=== PATIENT | female | born 1970 | race Caucasian/White ===

== ENCOUNTER 2018-08-11 08:00 | Outpatient (CLI) | payer MEDICAID ==
[2018-08-11 15:31] LABS: BASOPHILS # (AUTO) 0.1 10^3/uL (0.0-0.1); BASOPHILS % (AUTO) 0.8 %; EOSINOPHILS # (AUTO) 0.6 10^3/uL (0.0-0.7); EOSINOPHILS % (AUTO) 5.6 %; LYMPHOCYTES # (AUTO) 1.8 10^3/uL (1.5-3.5); LYMPHOCYTES % (AUTO) 16.7 %; MEAN CORPUSCULAR HEMOGLOBIN 29.8 pg (27.0-31.0); MEAN CORPUSCULAR HGB CONC 33.9 g/dL (32.0-36.0); MEAN CORPUSCULAR VOLUME 87.9 fL (81.0-99.0); MONOCYTES # (AUTO) 0.7 10^3/uL (0.0-1.0); MONOCYTES % (AUTO) 6.2 %; NEUTROPHILS # (AUTO) 7.6 10^3/uL (1.5-6.6); NEUTROPHILS % (AUTO) 70.7 %; PLT - PLATELET COUNT 314 10^3/uL (130-450); RED BLOOD COUNT 5.03 10^6/uL (4.20-5.40); RED CELL DISTRIBUTION WIDTH 13.8 % (12.0-15.0); WHITE BLOOD COUNT 10.8 x10^3/uL (4.8-10.8)
[2018-08-11 15:55] LABS: ALBUMIN 4.6 g/dL (3.2-5.5); ALBUMIN/GLOBULIN RATIO 1.2 (1.0-2.2); ALKALINE PHOSPHATASE 68 IU/L (42-121); ALT ALANINE AMINOTRANSFERASE 22 IU/L (10-60); AST ASPARTATE AMINOTRANSFERASE 20 IU/L (10-42); BILIRUBIN,TOTAL 0.4 mg/dL (0.2-1.0); BUN - BLOOD UREA NITROGEN 11 mg/dL (6-20); CALCIUM 9.6 mg/dL (8.5-10.3); CARBON DIOXIDE - CO2 22 mmol/L (21-32); CHLORIDE 106 mmol/L (101-111); CHOL/HDL RATIO 3.7 (<4.4); CHOLESTEROL 152 mg/dL; CREATININE 1.1 mg/dL (0.4-1.0); GFR - MDRD 53 (>89); GLUCOSE 100 mg/dL (70-100); HDL CHOLESTEROL 41 mg/dL; LDL CHOLESTEROL,CALCULATED 55 mg/dL; LDL/HDL RATIO 1.3 (<4.4); SODIUM 135 mmol/L (135-145); TOTAL PROTEIN 8.3 g/dL (6.7-8.2); VLDL CHOLESTEROL 56 mg/dL
[2018-08-11 16:08] LABS: HB2 TOTAL 16.9 g/dL; HEMOGLOBIN A1C 0.63 g/dL; HEMOGLOBIN A1C % 5.6 % (4.6-6.2)
[2018-08-11 16:09] LABS: LITHIUM 0.86 mmol/L
[2018-08-11 16:25] LABS: T4 (THYROXINE) 9.89 ug/dL (6.09-12.23)
[2018-08-11 16:28] LABS: THYROID STIMULATING HORMONE 4.82 uIU/mL (0.34-5.60)
[2018-08-11 16:30] LABS: FREE T4 (FREE THYROXINE) 0.67 ng/dL (0.58-1.64)
[2018-08-11 16:35] LABS: TOTAL T3 1.38 ng/mL (0.87-1.78)
== END 2018-08-11 08:01 | disposition home or self-care (01) ==
LOC: LAB 08:00
PROVIDERS: ATTEND Registered Nurse
DX: F31.30 Bipolar disorder, current episode depressed, mild or moderate severity, unspecified (principal); Z79.899 Other long term (current) drug therapy
CPT/HCPCS: 36415; 80053; 80061; 80178; 83036; 83721; 84436; 84439; 84443; 84480; 85025

== ENCOUNTER 2019-06-01 16:00 | Outpatient (CLI) | payer BC, MEDICAID ==
[2019-06-02 00:25] LABS: TRICHOMONAS VAGINALIS DNA NEGATIVE (NEGATIVE)
== END 2019-06-01 23:59 | disposition home or self-care (01) ==
LOC: LAB.R 16:00
PROVIDERS: ATTEND Obstetrics & Gynecology
DX: Z20.2 Contact with and (suspected) exposure to infections with a predominantly sexual mode of transmission (principal)
CPT/HCPCS: 87491; 87591; 87661

== ENCOUNTER 2019-06-01 16:21 | Outpatient (CLI) | payer BC, MEDICAID ==
[2019-06-02 11:37] LABS: HIV AG/AB 4TH GEN NON-REACTIVE (NON-REACTIVE)
[2019-06-02 12:41] LABS: HEPATITIS B SURFACE ANTIGEN NON-REACTIVE (NON-REACTIVE)
[2019-06-02 13:21] LABS: HEPATITIS C ANTIBODY NON-REACTIVE (NON-REACTIVE)
== END 2019-06-01 16:22 | disposition home or self-care (01) ==
LOC: LAB 16:21
PROVIDERS: ATTEND Obstetrics & Gynecology
DX: Z20.2 Contact with and (suspected) exposure to infections with a predominantly sexual mode of transmission (principal)
CPT/HCPCS: 81599; 86592; 86803; 87340; 87389; 87491; 87591; 87661

== ENCOUNTER 2020-07-21 04:16 | Outpatient (CLI) | payer MEDICAID | END 2020-07-21 04:17 | disposition critical access hospital (66) | LOC: EMS 04:16 | PROVIDERS: ATTEND Surgery | DX: T50.912A Poisoning by multiple unspecified drugs, medicaments and biological substances, intentional self-harm, initial encounter (principal) | CPT/HCPCS: A0425; A0427; A0999 ==

== ENCOUNTER 2020-07-21 04:33 | Observation (INO) | payer BC, MEDICAID ==
[2020-07-21] MEDS ORDERED: CHARCOAL ACTIVATED 25 GM/120 ML BOTTLE PO STA (04:40)
[2020-07-21] MEDS ORDERED: SODIUM CHLORIDE 0.9% 1,000 ML IV STA (04:40)
[2020-07-21 05:04] LABS: BASOPHILS # (AUTO) 0.1 10^3/uL (0.0-0.1); BASOPHILS % (AUTO) 0.7 %; EOSINOPHILS # (AUTO) 0.2 10^3/uL (0.0-0.7); EOSINOPHILS % (AUTO) 3.6 %; HGB - HEMOGLOBIN 15.5 g/dL (12.0-16.0); LYMPHOCYTES # (AUTO) 2.2 10^3/uL (1.5-3.5); LYMPHOCYTES % (AUTO) 32.8 %; MEAN CORPUSCULAR HEMOGLOBIN 29.9 pg (27.0-31.0); MEAN CORPUSCULAR HGB CONC 33.4 g/dL (32.0-36.0); MEAN CORPUSCULAR VOLUME 89.4 fL (81.0-99.0); MEAN PLATELET VOLUME 10.3 fL (7.9-10.8); MONOCYTES # (AUTO) 0.3 10^3/uL (0.0-1.0); MONOCYTES % (AUTO) 4.8 %; NEUTROPHILS # (AUTO) 3.9 10^3/uL (1.5-6.6); NEUTROPHILS % (AUTO) 57.5 %; PLT - PLATELET COUNT 257 10^3/uL (130-450); RED BLOOD COUNT 5.19 10^6/uL (4.20-5.40); RED CELL DISTRIBUTION WIDTH 13.1 % (12.0-15.0); WHITE BLOOD COUNT 6.7 x10^3/uL (4.8-10.8)
[2020-07-21 05:19] LABS: ACETAMINOPHEN < 10 ug/mL (10-30); ALBUMIN 4.3 g/dL (3.2-5.5); ALBUMIN/GLOBULIN RATIO 1.2 (1.0-2.2); ALKALINE PHOSPHATASE 77 IU/L (42-121); ALT ALANINE AMINOTRANSFERASE 17 IU/L (10-60); AST ASPARTATE AMINOTRANSFERASE 17 IU/L (10-42); BILIRUBIN,TOTAL 0.4 mg/dL (0.2-1.0); BUN - BLOOD UREA NITROGEN 9 mg/dL (6-20); CALCIUM 9.2 mg/dL (8.5-10.3); CARBON DIOXIDE - CO2 18 mmol/L (21-32); CHLORIDE 111 mmol/L (101-111); CREATININE 1.1 mg/dL (0.4-1.0); GLUCOSE 119 mg/dL (70-100); LIPASE 29 U/L (22-51); SALICYLATE < 6.0 mg/dL; SODIUM 140 mmol/L (135-145)
[2020-07-21] MEDS ORDERED: SODIUM BICARBONATE 100 MEQ in DEXTROSE 5% 1,000 ML IV STA (05:22)
--- NOTE | 2020-07-21 05:22 | ED Physician Documentation ---
PD HPI OVERDOSE - Stated complaint Stated Complaint: OD - Chief complaint Chief Complaint: MHE - History obtained from History obtained from: Patient - History of Present Illness Timing - onset: How many hours ago (possibly 4 hours STRANNER, as patient says she took meds about midnight. Daughter discovered her with pills on floor and sedated just STRANNER.) Subtance(s) ingested: Multiple (Patient states she took amitriptylline and doxepin Rx pills with intent to overdose/suicide along with some alcohol. Unknown number of pills. EMS states there were 2 of her pills bottles open with a few pills spilled. They scooped them back into the bottles and put them into bag with her other pills), EtOH (some alcohole). No: ASA, Tylenol, Illicit drug Associated symptoms: Altered mental status (daughter says her mom was hard to rouse, and seemed confused when she did.) Contributing factors: Depresssed, Suicidal Similar symptoms before: Has not had sx before Recently seen: Not recently seen Review of Systems Constitutional: denies: Fever Eyes: reports: Decreased vision (mild blurred) Throat: denies: Sore throat Cardiac: denies: Chest pain / pressure Respiratory: denies: Cough GI: denies: Abdominal Pain, Vomiting Skin: denies: Abrasion (s), Laceration (s) Neurologic: denies: Focal weakness, Numbness, Syncope, Seizure, Headache Endocrine: denies: Weight loss Immunocompromised: denies: Immunocompromised PD PAST MEDICAL HISTORY - Past Medical History Past Medical History: Yes Cardiovascular: Hypertension Respiratory: None Endocrine/Autoimmune: None GI: None : None HEENT: None Psych: Depression, Anxiety, ADD/ADHD Musculoskeletal: None Derm: None - Past Surgical History Past Surgical History: Yes General: Cholecystectomy - Present Medications Home Medications: Ambulatory Orders Medication Instructions Recorded Confirmed ARIPiprazole [Abilify] 5 mg PO DAILY 07/21/20 07/21/20 Amitriptyline [Elavil] 25 mg PO QPM 07/21/20 07/21/20 Buspirone HCl 10 mg PO DAILY 07/21/20 07/21/20 Citalopram Hydrobromide [Celexa] 20 mg PO DAILY 07/21/20 07/21/20 Cyclobenzaprine HCl 5 mg PO DAILY 07/21/20 07/21/20 Doxepin [SINEquan] 10 mg PO DAILY 07/21/20 07/21/20 Fluoxetine HCl [Prozac] 40 mg PO BID 07/21/20 07/21/20 LORazepam [Ativan] 0.5 mg PO DAILY PRN 07/21/20 07/21/20 [place] Carbonate 150 mg PO TID 07/21/20 07/21/20 Lurasidone HCl [Latuda] 40 mg PO DAILY 07/21/20 07/21/20 Metoprolol Tartrate 50 mg PO DAILY 07/21/20 07/21/20 Prazosin [Minipress] 1 mg PO QPM 07/21/20 07/21/20 Risperidone [Risperdal] 2 mg PO DAILY 07/21/20 07/21/20 Venlafaxine ER [Effexor ER] 37.5 mg PO DAILY 07/21/20 07/21/20 amLODIPine [Norvasc] 5 mg PO DAILY 07/21/20 07/21/20 hydrOXYzine PAMOATE [Vistaril] 25 mg PO QID 07/21/20 07/21/20 - Allergies Allergies/Adverse Reactions: Allergies Allergy/AdvReac Type Severity Reaction Status Date / Time No Known Drug Allergies Allergy Verified 07/21/20 04:50 - Social History Does the pt smoke?: No Smoking Status: Never smoker Does the pt have substance abuse?: No - Immunizations Immunizations are current?: Yes - POLST Patient has POLST: No PD ED PE NORMAL - Vitals Vital signs reviewed: Yes - General General: Alert and oriented X 3, No acute distress, Well developed/nourished - HEENT HEENT: EOMI (no nystagmus), Moist mucous membranes, Pharynx benign, Other (small subconjunctival hemorrhage noted medial right eye about 4-6 o'clock position.) - Neck Neck: Supple, no meningeal sign, No adenopathy - Cardiac Cardiac: No murmur. No: RRR (tachycardic, without ectopy. QRS appears normal. ) - Respiratory Respiratory: Clear bilaterally - Abdomen Abdomen: Soft, Non tender - Derm Derm: Normal color, Warm and dry - Neuro Neuro: Alert and oriented X 3, No motor deficit, Normal speech Eye Opening: Spontaneous Motor: Obeys Commands Verbal: Oriented GCS Score: 15 - Psych Psych: No: Normal mood (sad) Results - Vitals Vitals: Vital Signs - 24 hr 07/21/20 07/21/20 07/21/20 04:35 05:06 05:52 Temperature 37.2 C Heart Rate 111 H 110 H 101 H Respiratory 21 21 19 Rate Blood Pressure 133/98 H 142/110 H 106/71 O2 Saturation 97 99 98 Oxygen O2 Source Room air - EKG (time done) 04:51 Rate: Rate (enter#) (109) [place]: Normal Intervals: Normal IL. No: Wide QRS (it is 77) QRS: Normal Ischemia: Normal ST segments, Non specific changes (flattening laterally). No: ST elevation c/w ischemia, ST depression - Labs Labs: Laboratory Tests 07/21/20 07/21/20 07/21/20 04:41 04:41 04:41 WBC 6.7 RBC 5.19 Hgb 15.5 Hct 46.4 MCV 89.4 MCH 29.9 MCHC 33.4 RDW 13.1 Plt Count 257 MPV 10.3 Neut # (Auto) 3.9 Lymph # (Auto) 2.2 [place] # (Auto) 0.3 Eos # (Auto) 0.2 Baso # (Auto) 0.1 Absolute Nucleated RBC 0.00 Nucleated RBC % 0.0 Sodium 140 Potassium 3.2 L Chloride 111 Carbon Dioxide 18 L Anion Gap 11.0 BUN 9 Creatinine 1.1 H Estimated GFR (MDRD) 53 L Glucose 119 H Calcium 9.2 Total Bilirubin 0.4 AST 17 ALT 17 Alkaline Phosphatase 77 Total Protein 8.0 Albumin 4.3 Globulin 3.7 Albumin/Globulin Ratio 1.2 Lipase 29 TSH 3.23 Salicylates < 6.0 Acetaminophen < 10 L Ethyl Alcohol 13.0 PD MEDICAL DECISION MAKING - ED course Complexity details: considered differential (Depression and acute suicidality overdosing on try cyclic medication. She is tachycardic but her QRS appears normal. No report of seizures. She has slightly blurred vision and is minimally sleepy. Reportedly took the medication at midnight, but ? reliability.), d/w patient, d/w family ED course: The patient has some dry mouth and is sleepy but still conversant. She denies any blurred vision. She is persistently tachycardic and has bicarb of 18 some mild acidosis. Her initial blood pressure was 130s systolic and last check was 106 systolic. A repeat EKG showed the QRS to be 80 which is fairly similar to 77 on the first 1. Up-to-date reference gave at least a 6-hour timeframe to watch for any symptoms and more prolonged observation if symptomatic. However the patient already presents symptomatic with tachycardia and mild acidosis, falling BP (though not hypotensive), dry mouth, somnolence. Has good ventilation/airway. Has a normal QRS. Up to date suggested monitored care setting. Doxepin half life is reasonably long, so patient will need reasonable length time of cardiac monitoring until symptoms improve. Seizure precautions, manager cardiac cath, frequent BP checks, accuchecks. Departure - Departure Disposition: ED Place in Observation Clinical Impression: Intentional overdose of drug in tablet form, Suicide attempt, Tachycardia Tricyclic overdose Qualifiers: Encounter type: initial encounter Injury intent: intentional self-harm Qualified Code(s): T43.012A - Poisoning by tricyclic antidepressants, intentional self-harm, initial encounter Condition: Stable Record reviewed to determine appropriate education?: Yes
[2020-07-21] MEDS ORDERED: POTASSIUM CHLOR 10 MEQ/100 ML 10 MEQ/100 ML BAG IV ONE (05:23)
[2020-07-21] MEDS ORDERED: SODIUM BICARBONATE 8.4% 50 MEQ/50 ML VIAL ONE (05:32)
[2020-07-21] MEDS ORDERED: DEXTROSE 5% 1,000 ML IV ONE (05:35)
[2020-07-21 06:16] LABS: LITHIUM < 0.05 mmol/L
[2020-07-21 06:19] LABS: MUDS CUTOFF CONCENTRATIONS CUTOFF CONC BELOW:
[2020-07-21 06:20] LABS: BILIRUBIN,URINE NEGATIVE (NEGATIVE); GLUCOSE, URINE (UA) NEGATIVE (NEGATIVE); KETONES,URINE (UA) NEGATIVE (NEGATIVE); LEUKOCYTE ESTERASE, URINE NEGATIVE (NEGATIVE); NITRITE,URINE NEGATIVE (NEGATIVE); OCCULT BLOOD,URINE NEGATIVE (NEGATIVE); PROTEIN,URINE NEGATIVE (NEGATIVE); UROBILINOGEN,URINE 0.2 (NORMAL) E.U./dL (NORMAL)
[2020-07-21 06:22] LABS: CLARITY,URINE CLEAR (CLEAR); HCG UR QUAL NEGATIVE
[2020-07-21] MEDS ORDERED: ACETAMINOPHEN 325 MG TABLET PO PRN (06:23)
[2020-07-21] MEDS ORDERED: ONDANSETRON ODT 4 MG TABLET TL PRN (06:23)
[2020-07-21] MEDS ORDERED: SODIUM CHLORIDE FLUSH 0.9% 10 ML SYRINGE IVP PRN (06:23)
[2020-07-21] MEDS ORDERED: LACTATED RINGERS 1,000 ML IV ONE (06:26)
[2020-07-21] MEDS ORDERED: POTASSIUM CHLORIDE 20 MEQ TABLET PO STA (06:26)
[2020-07-21 06:31] LABS: AMPHETAMINE SCREEN,URINE NEGATIVE (NEGATIVE); BENZODIAZEPINES SCREEN, URINE NEGATIVE (NEGATIVE); COCAINE SCREEN URINE NEGATIVE (NEGATIVE); METHADONE SCREEN, URINE NEGATIVE (NEGATIVE); METHAMPHETAMINES SCREEN, URINE NEGATIVE (NEGATIVE); OPIATE SCREEN, URINE NEGATIVE (NEGATIVE); OXYCODONE SCREEN, URINE NEGATIVE (NEGATIVE); PROPOXYPHENE SCREEN, URINE NEGATIVE (NEGATIVE); TRICYCLIC ANTIDEPRESSANT,URINE POSITIVE (NEGATIVE)
[2020-07-21] MEDS: ENOXAPARIN 40 MG/0.4 ML SYRINGE SUBQ SCH (09:17)
--- NOTE | 2020-07-21 09:50 | HISTORY & PHYSICAL EXAMINATION ---
Chief Complaint - Chief Complaint Chief Complaint: Found down by daughter <Jessica Olea - Last Filed: 07/21/20 13:57> History of Present Illness - Admitted From Admitted From:: Home via EMS - History Obtained From Records Reviewed: [facility] History obtained from: Patient Exam Limitations: none <Jessica Olea - Last Filed: 07/21/20 13:57> - History of Present Illness HPI Comment/Other: The patient is a 50yo female, admitted to observation for overdose on tricyclics. The patient was found down in her bathroom by her live-in daughter around 1am this morning. The daughter states the patient was groggy and slurring her speech prompting her to call EMS. She denies the presence of any blood, vomit or stool on the floor or on the patient. The patient reports to have drank 1 and a half cans of [place] (alcohol) and then took different sleeping pills, estimating a total of 25-30 tabs. She reports the incident was sparked by feelings from a recent 5.5 yr break up with her boyfriend and lack of people reaching out on her birthday, which was yesterday. She is estranged from her family; parents, sister, ex-, and oldest son do not speak to her. Her daughter is her only family and younger son speaks to her only occasionally. The patient has a history of depression, anxiety, borderline personality disorder and possible bipolar (she is unsure of this diagnosis but recalls a hx of taking lithium in the past). She had been being seen at [facility] but due to insurance complications stopped going, last appointment was in March. (LeftyJessica) History - Past Medical History Cardiovascular: reports: Hypertension Respiratory: reports: None Neuro: reports: None Endocrine/Autoimmune: reports: None GI: reports: None SERVICE ORDER DISPATCHER: reports: None : reports: None HEENT: reports: None Psych: reports: Depression, Anxiety, Bipolar disorder (Pt reports having been diagnosed with this previously and placed on lithium but feels as though this may be an inaccurate diagnosis. ), ADD/ADHD, Other (Borderline personality disorder) Musculoskeletal: reports: None Derm: reports: None MRSA Hx?: No Other Past Medical History: Restless Leg Syndrome - Past Surgical History General: reports: Cholecystectomy (2013) - Family & Social History Family History Comment/Other: Pt is adopted and estranged from her adoptive family. Her mother and 1/2 sister live in [place] and have a hx of ETOH abuse. father whereabouts unknown. Living arrangement: At home Living Situation: With family (Daughter, Kirby, lives with her in the home) Social History Notes: Pt reports being from for over 6 years now, has two sons and one daughter. Daughter, 27 lives with her. Oldest son lives with father in [place] and does not speak to her, younger son lives in [place], [place] and speaks to her occasionally. Recently broke up with her boyfriend of 5.5 years and has been in recent contact with him, however contact has been argumentative. Denies tobacco use, reports occasional alcohol consumption (non- regularly), reports daily marijuana consumption reporting that she smokes a couple of times daily. - Substance History Use: Uses substance without health or social issues: Cannabis Use Issues: Mood Disorder Abuse: Recurrent use of substance despite neg consequences: NONE Dependence: Experiences withdrawal or developed tolerances: Cannabis (tolerance) - POLST Patient has POLST: No POLST Status: Full Code <Jessica Olea - Last Filed: 07/21/20 13:57> Meds/Allgy <Jessica Olea - Last Filed: 07/21/20 13:57> <Shasta Garcia - Last Filed: 07/21/20 14:46> - Home Medications Home Medications: Ambulatory Orders Medication Instructions Recorded Confirmed ARIPiprazole [Abilify] 5 mg PO DAILY 07/21/20 07/21/20 Amitriptyline [Elavil] 25 mg PO QPM 07/21/20 07/21/20 Buspirone HCl 10 mg PO DAILY 07/21/20 07/21/20 Citalopram Hydrobromide [Celexa] 20 mg PO DAILY 07/21/20 07/21/20 Cyclobenzaprine HCl 5 mg PO DAILY 07/21/20 07/21/20 Doxepin [SINEquan] 10 mg PO QPM 07/21/20 07/21/20 Fluoxetine HCl [Prozac] 40 mg PO BID 07/21/20 07/21/20 LORazepam [Ativan] 0.5 mg PO DAILY PRN 07/21/20 07/21/20 [place] Carbonate 150 mg PO TID 07/21/20 07/21/20 Lurasidone HCl [Latuda] 40 mg PO DAILY 07/21/20 07/21/20 Metoprolol Succinate [Toprol Xl] 50 mg PO DAILY 07/21/20 07/21/20 Prazosin [Minipress] 1 mg PO QPM 07/21/20 07/21/20 Risperidone [Risperdal] 2 mg PO DAILY 07/21/20 07/21/20 Venlafaxine ER [Effexor ER] 37.5 mg PO DAILY 07/21/20 07/21/20 hydrOXYzine PAMOATE [Vistaril] 25 mg PO QID 07/21/20 07/21/20 - Allergies Allergies/Adverse Reactions: Allergies Allergy/AdvReac Type Severity Reaction Status Date / Time No Known Drug Allergies Allergy Verified 07/21/20 04:50 Review of Systems - Constitutional Constitutional: reports: Fatigue - Eyes Eyes: reports: Irritation (reports to occasionally have broken blood vessel in right eye) - Psychiatric Psychiatric: reports: Depression (feels alone, isolated, as if no one cares about her.), Other (Reports that she feels like sleeping all day, lack of energy) - All Other Systems All Other Systems: reports: Reviewed and negative <Jessica Olea - Last Filed: 07/21/20 13:57> <Jessica Olea - Last Filed: 07/21/20 13:57> Prior Level of Functionality: Prior to this hospitalization patient was able to perform all ADLs independently, does not require durable medical equipment to ambulate. (Jessica Olea) Exam - Vital Signs Reviewed Vital Signs: Yes - Physical Exam General Appearance: positive: No acute distress, Alert Eyes Bilateral: positive: Other (Broken blood vessels in right eye, otherwise PERRLA, pupils 1cm in size) ENT: positive: ENT inspection nml Neck: positive: Nml inspection Respiratory: positive: No respiratory distress, Breath sounds nml Cardiovascular: positive: Regular rate & rhythm, No murmur, No gallop Peripheral Pulses: positive: 2+ Abdomen: positive: Non-tender, Nml bowel sounds Skin: positive: Color nml, No rash, Warm, Dry Extremities: positive: Non-tender, Full ROM Neurologic/Psychiatric: positive: Oriented x3, Motor nml <Jessica Olea - Last Filed: 07/21/20 13:57> - Vital Signs Vital Signs: Vital Signs x48h Temp Pulse Pulse Resp BP BP BP 07/21/20 12:00 36.9 C 86 20 103/72 07/21/20 08:00 36.9 C 96 18 117/89 H 07/21/20 07:15 36.4 C L 94 19 136/90 H 07/21/20 06:54 94 19 136/90 H 07/21/20 06:30 36.2 C L 101 H 19 102/56 L 07/21/20 06:00 98 20 106/71 Pulse Ox 07/21/20 12:00 95 07/21/20 08:00 97 07/21/20 07:15 98 07/21/20 06:54 97 07/21/20 06:30 98 07/21/20 06:00 97 Conclusion/Plan - Problem List (1) Tricyclic overdose Conclusion/Plan: Pt reports to have taken 25-30 tabs of different sleeping pills intentionally to end her life. Toxicology screen in the ED found positive tricyclics. During assessment patient was slightly groggy but able to arouse, answer questions appropriately, and was calm and participative. EKG from ED found NSR, QRS 0.09, QTc 0.39, HR in 90's. Repeat EKG while in obs found to be normal, no significant change from previous. Potassium was found to be low at 3.2, replaced in the ED, will recheck this value while in observation and replace further if necessary. Plan: -Monitor vitals q4hr -Repeat potassium level 6 hours after replacement -IV LR @100ml/hr Qualifiers: Encounter type: initial encounter Injury intent: intentional self-harm Qualified Code(s): T43.012A - Poisoning by tricyclic antidepressants, intentional self-harm, initial encounter (2) Suicide attempt Conclusion/Plan: Pt confirms her intentions with taking sleeping pills was to end her life. She will need to be monitored to ensure she dose not cause any further self-harm. DMHP will determine next steps in her care. Plan: -1:1 observation (3) Depression Conclusion/Plan: Pt has been previously diagnosed with depression as well as other behavioral issues. Reports difficulty dealing with recent break up in conjunction with feeling isolated on her birthday which was yesterday prompted severe depressive episode where she wanted to end her life. Psychiatry will determine the next steps in her mental health care. Qualifiers: Depression Type: unspecified Qualified Code(s): F32.9 - Major depressive disorder, single episode, unspecified (4) Hypertension Conclusion/Plan: Pt is previously diagnosed with hypertension. She had been prescribed BP management medication however has not been taking it since her insurance change, approximately 4 months ago. During admission her BP has been within normal range. Will continue to monitor her BP and provide PRN medication. Plan: -Hydralizine 10mg IVP PRN q4hr for SBP >160 -Monitor BP q4hr Qualifiers: Hypertension type: essential hypertension Qualified Code(s): I10 - Essential (primary) hypertension - Lab Results Lab results reviewed: Yes Fish Bones: 07/21/20 04:41 07/21/20 04:41 - Diagnostic Imaging Results Diagnostic Imaging Results: positive: See rad report - EKG Results EKG Interpreted Independently: Yes EKG Comparison: Unchanged from prior EKG <Jessica Olea - Last Filed: 07/21/20 13:57> - Lab Results Fish Bones: 07/21/20 04:41 07/21/20 12:22 <Shasta Garcia - Last Filed: 07/21/20 14:46> - EKG Results EKG Findings: Normal Sinus: HR 96 QRS0.09 QTc 0.46 (Jessica Olea) Core Measures - Anticipated LOS I expect patient to be DC'd or transferred within 96 hours.: Yes - DVT/VTE - Prophylaxis VTE/DVT Device ordered at admit?: No Not Ordered - Low Risk: Low Risk VTE/DVT Prophylaxis med ordered at admit?: Yes - AMI - Statin at Admit Aspirin Prescribed on Admit: No <Jessica Olea - Last Filed: 07/21/20 13:57>
[2020-07-21] MEDS: SODIUM CHLORIDE FLUSH 0.9% 10 ML SYRINGE IVP SCH ×2 (10:28→15:57)
[2020-07-21] MEDS: LACTATED RINGERS 1,000 ML IV SCH ×2 (10:28→19:59)
[2020-07-21 12:49] LABS: CALCIUM 8.6 mg/dL (8.5-10.3); CREATININE 0.9 mg/dL (0.4-1.0); PHOSPHORUS 3.1 mg/dL (2.5-4.6)
--- NOTE | 2020-07-21 13:07 | PHARMACY PROGRESS NOTE ---
- Best Possible Medication History Admit Date and Time: 07/21/20622 Processed by: Pharmacy Medication History completed: Yes Patient Interview: Pt unable to participate Secondary Source(s): Prescription bottles, Pharmacy records, Insurance records As the person ultimately responsible for medication therapy, providers are able to order a medication from an existing home medication list in [facility] via the "Reconcile Routine" prior to Confirmation of that medication by residential support worker. Such practice is discouraged except when the physician, in their clinical judgment, deems that a medical need exists for a medication without regard to previous use.
[2020-07-22] MEDS: SODIUM CHLORIDE FLUSH 0.9% 10 ML SYRINGE IVP SCH ×3 (01:51→16:29)
[2020-07-22 05:22] LABS: BASOPHILS # (AUTO) 0.1 10^3/uL (0.0-0.1); BASOPHILS % (AUTO) 0.7 %; EOSINOPHILS # (AUTO) 0.2 10^3/uL (0.0-0.7); EOSINOPHILS % (AUTO) 3.4 %; HGB - HEMOGLOBIN 14.7 g/dL (12.0-16.0); LYMPHOCYTES # (AUTO) 2.1 10^3/uL (1.5-3.5); LYMPHOCYTES % (AUTO) 31.5 %; MEAN CORPUSCULAR HEMOGLOBIN 29.9 pg (27.0-31.0); MEAN CORPUSCULAR HGB CONC 33.1 g/dL (32.0-36.0); MEAN CORPUSCULAR VOLUME 90.2 fL (81.0-99.0); MEAN PLATELET VOLUME 10.2 fL (7.9-10.8); MONOCYTES # (AUTO) 0.4 10^3/uL (0.0-1.0); MONOCYTES % (AUTO) 5.3 %; NEUTROPHILS % (AUTO) 58.7 %; PLT - PLATELET COUNT 235 10^3/uL (130-450); RED BLOOD COUNT 4.92 10^6/uL (4.20-5.40); RED CELL DISTRIBUTION WIDTH 13.2 % (12.0-15.0); WHITE BLOOD COUNT 6.8 x10^3/uL (4.8-10.8)
[2020-07-22] MEDS: LACTATED RINGERS 1,000 ML IV SCH ×2 (06:01→15:23)
[2020-07-22] MEDS: ENOXAPARIN 40 MG/0.4 ML SYRINGE SUBQ SCH (08:19)
--- NOTE | 2020-07-22 15:29 | Discharge Plan ---
Discharge Plan Problem Reviewed?: Yes Disposition: 65 Psych Hosp/Unit DC/Xfer Condition: Stable Diet: Regular Activity Restrictions: Activity as Tolerated (as per [facility] protocol (no medical limitations)) Health Concerns: Tricyclic antidepressent overdose Patient is a 50 yo female with history of depression , bipolar disorder who presented when found by daughter 07/21 early am groggy w/ slurred speech with pill bottles empty beside her. (per later report estimated 25-30 tabs) along with a can of [place] alcohol. Tox screen on presentation + for tricyclics and cannibus, [place] level < 0.05 (bottles at home included lithium), Tylenol neg, ETOH 13.0, salicylates < 6.0 . In ED she was arousable, hemodynamically stable other than mild tachycardia ~ 100. EKG was without QT prolongation or other acute abnormality, and repeat EKG without change. Labs with mild acidosis / bicarb 18. Patient did have suicidal ideation at the time of ingestion due to a break up and feelings of isolation. She was monitored in inpatient setting with frequent VS, 1:1 observation, and IVF. She remained medically stable after time of admission to inpatient unit, hemodynamically stable, with normalized labs on 07/21 afternoon. Evaluated by mental health services on 07/22 and accepted [facility] (of note; at home she had many leftover bottles of prior prescriptions including but not limited to; doxepin, abilify, prisperial, buspirone, lorazepam, fluoxetine) Ensure before return home these are no longer in the home Hypertension Patient is on amlodipine at home can continue amlodipine 5 mg daily , Hold for SBP under 110 Depression; patient on Venlafaxine daily 37.5 at home This is continued on her No Smoking: If you smoke, Please STOP! Call for help.
[2020-07-22 15:47] VITALS: BP 151/98
--- NOTE | 2020-07-23 07:08 | DISCHARGE SUMMARY ---
"Discharge Summary Admit Date: 07/21/20 Discharge Date: 07/22/20 Discharging Provider: DIONY Quiñones Condition at Discharge: Stable Discharge Disposition: [facility] Psych Hosp/Unit DC/Xfer - DIAGNOSES Admission Diagnoses: Tricyclic over dose Suicide attempt Hypertension Depression Discharge Diagnoses with Status of Each Condition: 1 Tricyclic antidepressent overdose EKG without QRS widening or other significant abnormality , Vital signs (mild tachycardia) and chemistries (mild acidosis bicarb 18) RESOLVED 2 Suicide attempt; Patient denied continued thoughts of self harm Accepted for Transfer to inpatient mental health at [facility] 3 Hypertension stable Patient is on amlodipine at home can continue amlodipine 5 mg daily , Hold for SBP under 110 4 Depression; mood stable - HPI History of Present Illness: Patient is a 50 yo female with history of depression , anxiety, borderline personality disorder and possibly bipolar (she is unsure of dx, has taken lithium in the past) who presented when found by her live-in daughter 07/21 ~ 1am am groggy w/ slurred speech with pill bottles empty beside her. no emesis, blood or stool around patient. Daughter later report estimated 25-30 tabs of sinequan and amitryptilline and possibly other sleeping pills taken along with a can of [place] alcohol. Tox screen on presentation + for tricyclics and cannibus, [place] level < 0.05 (bottles at home included lithium), Tylenol neg, ETOH 13.0, salicylates < 6.0 In ED she was arousable, hemodynamically stable other than mild tachycardia ~ 110, initial BP 122/98, 142/110. Normal oxygenation and RR . EKG was without QT prolongation or other acute abnormality, and repeat EKG without change. Labs with mild acidosis / bicarb 18. Repeat bicarb 23 . santos virus PCR negatiave. Patient acknowleged suicidal ideation at the time of ingestion due to a romantic break up and feelings of isolation and lack of people reaching out on her birthday, which was the prior day. She is estranged from her family; pa rents, sister, ex-, and oldest son do not speak to her. Her daughter is her only family and younger son speaks to her only occasionally.. She had been being seen at [facility] but due to insurance complications stopped going, last appointment was in March - CONSULTS | PROCEDURES Consultations: [facility] mental health evaluation Procedures: none - HOSPITAL COURSE Hospital Course: Tricyclic antidepressent overdose Patient was monitored in inpatient setting with frequent VS, 1:1 observation, and IVF. She remained medically stable after time of admission to inpatient unit, hemodynamically stable, with normalized labs on 07/21 afternoon. Evaluated by mental health services on 07/22 and accepted for transfer to inpatient management at [facility] (of note; at home she had many leftover bottles of prior prescriptions including but not limited to; doxepin, abilify, prisperial, buspirone, lorazepam, fluoxetine) Ensure before return home these are no longer in the home Hypertension Patient is on amlodipine at home but had ot taken ~ 4 mos since insurance change. can continue amlodipine 5 mg daily , Hold for SBP under 110 Depression; patient on Venlafaxine daily 37.5 at home This is continued on her discharge med reconciliation but will defer to mental health specialists at [place] to modify if needed over 30 minutes spent on discharge discussing plan with patient, sandermnt - ALLERGIES Allergies/Adverse Reactions: Allergies Allergy/AdvReac Type Severity Reaction Status Date / Time No Known Drug Allergies Allergy Verified 07/21/20 04:50 - MEDICATIONS Home Medications: Ambulatory Orders Medication Instructions Recorded Confirmed Venlafaxine ER [Effexor ER] 37.5 mg PO DAILY 07/21/20 07/21/20 amLODIPine [Norvasc] 5 mg PO DAILY 07/22/20 07/22/20 - PHYSICAL EXAM AT DISCHARGE General Appearance: positive: No acute distress, Alert. negative: Anxious (cooperative, was reasonably asking for her phone as felt need to notify her workplace) Eyes Bilateral: positive: Normal inspection, PERRL, EOMI, Other (no nystagmus) Respiratory: positive: Chest non-tender, No respiratory distress Cardiovascular: positive: Regular rate & rhythm, No murmur. negative: Tachycardia Abdomen: positive: Non-tender, Nml bowel sounds, No distention Skin: positive: Warm, Other (no erythema). negative: Diaphoresis Extremities: negative: Pedal edema Neurologic/Psychiatric: positive: Oriented x3, Motor nml, Mood/affect nml, Other (denies intent of self harm currently) - LABS Result Diagrams: 07/22/20 04:55 07/21/20 12:22 - DIAGNOSTIC IMAGING Diagnostic Imaging Results Comments: EKG, NST Rate 109, normal SD, nonwidended QRS 77 ms, no ST elevation, no ST depression,nonspecific flattening laterally, repeat EKG unchanged - TIME SPENT Time Spent in Discharge (Minutes): 40"
== END 2020-07-22 17:05 ==
LOC: ED 04:33 → OBS 06:23 → UNDOADMIN 06:23 → MS2 06:23 → OBS 06:23 → UNDODISIN 07-22 17:05
PROVIDERS: ADMIT Internal Medicine; ATTEND Nurse Practitioner
DX: T43.012A Poisoning by tricyclic antidepressants, intentional self-harm, initial encounter (principal); R00.0 Tachycardia, unspecified; Y92.012 Bathroom of single-family (private) house as the place of occurrence of the external cause; I10 Essential (primary) hypertension; F31.9 Bipolar disorder, unspecified; F41.9 Anxiety disorder, unspecified; F60.3 Borderline personality disorder; F90.1 Attention-deficit hyperactivity disorder, predominantly hyperactive type; F12.99 Cannabis use, unspecified with unspecified cannabis-induced disorder
CPT/HCPCS: 36415; 80048; 80053; 80178; 80306; 80307; 80320; 80329; 81003; 81025; 83690; 83735; 84100; 84443; 85025; 87635; 93005; 96361; 96365; 96366; 96368; 96372; 99285; A9270; G0378; J1650; J7120; 81001; 84132; 87086

== ENCOUNTER 2022-04-20 08:00 | Outpatient (CLI) | payer OTHER, MEDICAID ==
[2022-04-20 21:01] LABS: CHLAMYDIA TRACHOMATIS DNA NEGATIVE (NEGATIVE); NEISSERIA GONORRHOEAE DNA NEGATIVE (NEGATIVE)
[2022-04-20 22:33] LABS: BACTERIAL VAGINOSIS DNA POSITIVE (NEGATIVE); CANDIDA GLABRATA DNA NEGATIVE (NEGATIVE); CANDIDA GROUP DNA NEGATIVE (NEGATIVE); CANDIDA KRUSEI DNA NEGATIVE (NEGATIVE); TRICHOMONAS VAGINALIS DNA NEGATIVE (NEGATIVE)
[2022-04-21 05:12] LABS: RPR Non Reactive (Non Reactive)
[2022-04-21 06:11] LABS: HCV AB <0.1 s/co ratio (0.0-0.9)
[2022-04-21 07:11] LABS: HSV 1 IGG TYPE SPEC <0.91 index (0.00-0.90)
[2022-04-21 08:18] LABS: HIV SCREEN 4TH GENERATION Non Reactive (Non Reactive)
[2022-04-22 21:08] LABS: HSV IGM I/II COMBINATION <0.91 Ratio (0.00-0.90)
== END 2022-04-20 23:59 | disposition home or self-care (01) ==
LOC: LAB.N 08:00
PROVIDERS: ATTEND Nurse Practitioner
DX: Z11.3 Encounter for screening for infections with a predominantly sexual mode of transmission (principal)
CPT/HCPCS: 36415; 81514; 86592; 86695; 86696; 86803; 87389; 87491; 87536; 87591; 87661

== ENCOUNTER 2022-05-19 13:33 | Outpatient (CLI) | payer OTHER, MEDICAID ==
--- NOTE | 2022-05-25 09:17 | Mammography Report ---
BILATERAL DIGITAL SCREENING MAMMOGRAM 3D/2D: 05/19/2022 CLINICAL: Baseline exam Routine screening. No prior exams were available for comparison. The tissue of both breasts is heterogeneously dense. T his may lower the sensitivity of mammography. There is an oval mass with an obscured and circumscribed margin in the right breast at 10 o'clock ant erior depth. There is an irregular focal asymmetry in the left breast at 3 o'clock posterior depth. There also is an asymmetry with an obscured margin in the left breast posterior depth inferior region seen on the mediolateral oblique view only. No other significant masses or calcifications are seen in either breast. IMPRESSION: INCOMPLETE: NEEDS ADDITIONAL IMAGING EVALUATION The oval mass in the right breast at 10 o'clock anterior depth resembles a cyst and is indeterminate. The irregular focal asymmetry in the left breast at 3 o'clock posterior depth is indeterminate. The asymmetry in the left breast posterior depth inferior region seen on the mediolateral oblique vie w only is indeterminate. Additional views with possible ultrasound are recommended. Based on the Tyrer Cuzick model (a risk assessment model) the patients lifetime risk is 9.1% and her 10 year risk is 2.0%. According to the ACR, ACS, and NCCN guidelines, an annual breast MRI exam [place] with mammogram is recommended if the patients lifetime risk is 20% or greater. This exam was interpreted at Station ID: [id number]. NOTE: For mammograms, a report in lay terms will be sent to the patient. Approximately 15% of breast malignancies will not be visualized mammographically. In the management of a palpable breast mass, a negative mammogram must not discourage biopsy of a clinically suspicious lesion. Electronically Signed By: Álvaro Baig M.D. slc/:05/21/2022 11:11:49 ACR BI-RADS Category 0: Incomplete 3340F PARENCHYMAL PATTERN: (D) - The breast(s) demonstrate(s) heterogeneously dense fibroglandular parsimona beaver. BI-RADS CATEGORY: (0) - 0 Mammo and [place] [id number] Immediate follow-up LATERALITY: (B)
== END 2022-05-19 13:34 | disposition home or self-care (01) ==
LOC: MERGE 13:33 → DI.N 13:33
PROVIDERS: ATTEND Internal Medicine
DX: Z12.31 Encounter for screening mammogram for malignant neoplasm of breast (principal); N63.11 Unspecified lump in the right breast, upper outer quadrant; R92.8 Other abnormal and inconclusive findings on diagnostic imaging of breast

== ENCOUNTER 2022-08-24 19:29 | Outpatient (CLI) | payer OTHER | END 2022-08-24 19:30 | disposition home or self-care (01) | LOC: SC 19:29 → MERGE 09-05 19:30 | PROVIDERS: ATTEND Nurse Practitioner Family | DX: G47.33 Obstructive sleep apnea (adult) (pediatric) (principal); G47.61 Periodic limb movement disorder | CPT/HCPCS: 95810 ==

== ENCOUNTER 2022-09-09 15:39 | Outpatient (CLI) | payer OTHER ==
[2022-09-09 16:17] VITALS: BP 110/70
--- NOTE | 2022-09-09 16:17 | SLEEP CARE CONSULTATION ---
Information from patient questionnaire entered by Antoinette Coker. I have reviewed and concur with the information entered by Antoinette Coker. This document represents the service I personally performed and the decisions made by me, Padmini Elias ARNP. History of Present Illness Service Date and Time: 09/09/20221538 Initial [place] Sleepiness Scale score: 13 Current [place] Sleepiness Scale score: 12 (09-09-2022) Additional HPI information: KRYSTINE PAGE returns for follow up and results of the recently performed polysomnography. I explained the pathophysiology behind obstructive sleep apnea. We then spent quite a bit of time discussing different treatment options. For mild obstructive sleep apnea, surgery and oral appliance are alternatives to nasal CPAP therapy but in moderate or severe cases, nasal CPAP is the most effective and reliable treatment. I reviewed the impact of weight changes on sleep apnea and strongly recommended losing weight. Patient counseled not drink alcohol less than 4 hours before bedtime as it can increase snoring and apnea. Patient was cautioned about risks of drowsy driving until sleepiness symptoms resolve. Patient denies drowsy driving. Sleep Study - Results Type of Sleep Study: Polysomnography (Completed 08-24-22) Prior sleep studies: No Polysomnography/Home Sleep Study results: IMPRESSION: The quality of the study is good. 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 The sleep architecture was abnormal for sleep fragmentation and lack of slow wave sleep (N3). Respiratory monitoring showed moderate obstructive sleep apnea-hypopnea (AHI = 21.9) associated with frequent arousals, oxyhemoglobin desaturation and mild hypoxia (leno oxygen saturation of 84%). The patient did not sleep supine during this study. Snore was loud in intensity. There was severe periodic leg movement of sleep contributing to the sleep fragmentation. Cardiac rhythm was normal sinus rhythm without significant arrhythmia. No abnormal behavior (parasomnia) observed during the night. Allergies and Home Medications Drug allergies reviewed: Yes (NKDA) Home medication list reviewed: Yes (no changes, pt to call in list of meds for verification) Allergy and home medication list: Allergies No Known Drug Allergies Allergy (Verified 09/09/22 14:57) Physical Exam Vital signs obtained and entered by: Antoinette Mercedes MA Blood Pressure: 110/70 (left arm) Cuff size: long Heart Rate: 51 O2 Saturation: 98 Height: 5 ft 7 in Weight: 219 lb Body Mass Index: 34.2 BMI Classification: Obese Impression and Plan 1. Obstructive Sleep Apnea-Hypopnea Syndrome, moderate, with lowest oxygen sa turation of 84%. Obviously this is the cause of the patients symptoms of unrefreshed sleep, and excessive daytime sleepiness. Positive pressure therapy could benefit hypertension, depression and attention deficit. Patient has tried the CPAP in the past and was unable to tolerate pressurized air blowing through her nose. She asked her other options including information about Inspire implant. Patient would also consider other surgeries that could reduce her sleep apnea. After some discussion, patient would like a referral to Dr. Haro with [facility] for evaluation and treatment as necessary for inspire implant or other surgical options. 2. Periodic limb movement, severe, that did not fragment patients sleep. Periodic limb movement of sleep (PLMS) is characterized by episodes of repetitive limb movements that occur during sleep and usually involve the lower limbs. The etiology is unknown. Caffeine can aggravate PLMS and should be avoided. Sleep hygiene methods can also improve sleep as well as lifestyle changes such as regular exercise. Patient was advised that no treatment is needed at this time. If symptoms increase, then further evaluation is indicated. * Nasal auto CPAP therapy, pressure at 4-15 cm H2O. * Attempt to lose weight. * Avoid alcohol consumption near bedtime. * Avoid supine sleep until using CPAP. * The patient is again cautioned about driving until sleepiness completely resolves. * Return one month after CPAP obtained. I will assess response to therapy and compliance at that time. Counseling Topics: Weight loss health impact Visit Type: In Office Time Spent with Patient (minutes): 22 Provider Statement: I spent 100% of the Face to Face Visit with the patient with greater than 50% spent counseling the patient and coordination of care.
== END 2022-09-09 15:40 | disposition home or self-care (01) ==
LOC: SC 15:39
PROVIDERS: ATTEND Nurse Practitioner Family
DX: G47.33 Obstructive sleep apnea (adult) (pediatric) (principal); G47.61 Periodic limb movement disorder; E66.9 Obesity, unspecified; Z68.34 Body mass index [BMI] 34.0-34.9, adult
CPT/HCPCS: 99212; 99213